=== PATIENT | female | born 1965 | race Two or more races ===

== ENCOUNTER 2020-05-17 08:31 | Day surgery (SDC) | payer MEDICAID, MEDICARE ==
[2020-05-17] VITALS (8 sets, daily range): BP systolic 91–116; BP diastolic 40–72
[~2020-05-17] VITALS: Ht 160 cm; Wt 56.7 kg
[2020-05-17] MEDS ORDERED: Midazolam 2mg/2ml Inj ONE (09:04)
[2020-05-17] MEDS ORDERED: fentaNYL 100 mcg/2 mL IV ONE (09:05)
--- NOTE | 2020-05-17 09:33 | Pre-Procedure Note/Attestation ---
Pre-Procedure Note/Attestation Complete Prior to Procedure Planned Procedure: not applicable Procedure Narrative: colonoscopy Indications for Procedure Pre-Operative Diagnosis: screening colon Attestation I attest that I discussed the nature of the procedure; its benefits; risks and complications; and alternatives (and the risks and benefits of such alternatives ), prior to the procedure, with the patient (or the patient's legal associate financial representative). I attest that, if there was a reasonable possibility of needing a blood transfusion, the patient (or the patient's legal associate financial representative) was given the [facility] standardized written summary, pursuant to the Germán Carolann Blood Safety Act ([place] Health and Safety Code # 1645, as amended). I attest that I re-evaluated the patient just prior to the surgery and that there has been no change in the patient's H&P, except as documented below: Sanjay Cummins MD May 17, 2020 09:33
--- NOTE | 2020-05-17 09:34 | Short Stay Surgery H&P ---
History of Present Illness History of Present Illness Chief Complaint screening colon HPI Gregory Boles is a 54 year old female who was admitted on for Screening Patient History Allergies: Coded Allergies: No Known Allergies (Unverified , 05/17/20) PAST MEDICAL HISTORY: (1) Breast CA Review of Systems Cardiovascular: Reports: no symptoms Respiratory: Reports: no symptoms Skeletal: Reports: no symptoms Gastrointestinal: Reports: no symptoms Genitourinary: Reports: no symptoms Endocrine: Reports: no symptoms Physical Exam Vital Signs Last Vital Signs Date Time Temp Pulse Resp B/P (MAP) Pulse Ox O2 Delivery O2 Flow Rate FiO2 05/17/20 09:22 Room Air 05/17/20 09:18 98.6 85 18 113/72 100 Skin: normal HENT: normal Heart: normal Lungs: normal Abdomen: normal Extremities: normal Plan Plan of Care colonoscopy Attestation Are the patient's medical conditions optimized for surgery? Attestation Response: yes Sanjay Cummins MD May 17, 2020 09:34
--- NOTE | 2020-05-17 09:40 | Anethesia Preoperative Eval ---
Anesthesia Pre-op PMH/ROS General Date of Evaluation: May 17, 2020 Time of Evaluation: 09:37 Anesthesiologist: Pankaj ASA Score: ASA 2 Mallampati Score Class I : Soft palate, uvula, fauces, pillars visible Class II: Soft palate, uvula, fauces visible Class III: Soft palate, base of uvula visible Class IV: Only hard plate visible Mallampati Classification: Class II Surgeon: Placido Diagnosis: Colon CA screening Surgical Procedure: Colonoscopy Anesthesia History: none Family History: no anesthesia problems Allergies: Coded Allergies: No Known Allergies (Unverified , 05/17/20) Medications: see eMAR Patient NPO?: Yes Past Medical History Cardiovascular: Denies: HTN, CAD, ND, valve dz, arrhythmia, other Pulmonary: Denies: asthma, COPD, APOORVA, other Gastrointestinal/Genitourinary: Reports: GERD; Denies: CRI, ESRD, other Neurologic/Psychiatric: Reports: depression/anxiety; Denies: dementia, CVA, TIA, other HEENT: Denies: cataract (L), cataract (R), glaucoma, LOS COYOTES (L), LOS COYOTES (R), other Hematology/Immune: Reports: other - Breast CA s/p Sx PMH Narrative: as above PSxH Narrative: L partial mastectomy Anesthesia Pre-op Phys. Exam Physician Exam Last Vital Signs Date Time Temp Pulse Resp B/P (MAP) Pulse Ox O2 Delivery O2 Flow Rate FiO2 05/17/20 09:22 Room Air 05/17/20 09:18 98.6 85 18 113/72 100 Constitutional: NAD Neurologic: CN 2-12 intact Cardiovascular: RRR, no M/R/G Respiratory: CTA Gastrointestinal: S/NT/ND Airway Exam Mallampati Score: Class II MO: full Neck: flexible ROM: full Teeth: intact Dentures: no upper, no lower Anesthesia Pre-op A/P Labs see chart Risk Assessment & Plan Assessment: ASA 2 Plan: Jose Cadena MD May 17, 2020 09:39
[2020-05-17] MEDS ORDERED: LR 1000ml 1,000 ML IVLG SCH (09:54)
[2020-05-17] MEDS ORDERED: LR 1000ml ONE (10:00)
[2020-05-17] MEDS ORDERED: fentaNYL 100 mcg/2 mL IV PRN (10:00)
--- NOTE | 2020-05-17 10:10 | Endoscopy Procedure Note ---
Endoscopy Procedure Note General Indication for Procedure: screening Procedures Performed: colonoscopy Operative Findings/Diagnosis: one polyp Specimen: yes Pt Tolerated Procedure Well: Yes Estimated Blood Loss: none Anesthesia Anesthesiologist: siobhan Anesthesia: MAC Inserted Devices Implant(s) used?: No Quality Quality of Bowel Preparation: Excellent Did scope reach the cecum?: Yes Was there any complications?: No GI Core Measures 50 yrs or older w/o bx or poly: No 10yrs. F/U recommended: Yes If not recommended, why?: Above average risk 18 years or older w/prev. colo: No Sanjay Cummins MD May 17, 2020 10:10
--- NOTE | 2020-05-17 10:15 | Immediate Post-Op Evaluation ---
Immediate Post-Op Evalulation Immediate Post-Op Evalulation Procedure: Colonoscopy, polypectomy Date of Evaluation: May 17, 2020 Time of Evaluation: 10:14 IV Fluids: 800 Blood Products: none Estimated Blood Loss: none Urinary Output: none Blood Pressure Systolic: 98 Blood Pressure Diastolic: 56 Pulse Rate: 72 Respiratory Rate: 20 O2 Sat by Pulse Oximetry: 99 Temperature (Fahrenheit): 97.6 Pain Score (1-10): 1 Nausea: No Vomiting: No Complications none Patient Status: awake, patent, none Hydration Status: adequate Jose Lira MD May 17, 2020 10:15
--- NOTE | 2020-05-17 10:39 | 48 Hour Post Anesthesia Eval ---
Post Anesthesia Evaluation Procedure: Colonoscopy, polypectomy Date of Evaluation: May 17, 2020 Time of Evaluation: 10:38 Blood Pressure Systolic: 108 0: 58 Pulse Rate: 72 Respiratory Rate: 20 Temperature (Fahrenheit): 97.6 O2 Sat by Pulse Oximetry: 98 Airway: patent Nausea: No Vomiting: No Pain Intensity: 1 Hydration Status: adequate Cardiopulmonary Status: stable Mental Status/LOC: patient returned to baseline Follow-up Care/Observations: n/a Post-Anesthesia Complications: none Follow-up care needed: ready to discharge Jose Lira MD May 17, 2020 10:39
--- NOTE | 2020-05-17 15:30 | Procedure Note ---
DATE OF PROCEDURE: 05/17/2020 SURGEON: Sanjay Cummins MD. PROCEDURE: Colonoscopy. ANESTHESIA: Per Dr. Lira. INSTRUMENT: Olympus adult flexible colonoscope. INDICATIONS: Screening colonoscopy evaluation. REASON FOR PROCEDURE: The procedure, risks, benefits, and possible consequences, including hemorrhage, aspiration, perforation and infection, and alternative treatments, were explained to the patient/legal guardian by Dr. Sanjay Cummins and the patient/legal guardian understood and accepted these risks. PROCEDURE IN DETAIL: After informed consent was obtained and the patient was adequately sedated. First rectal exam was performed which was positive for internal hemorrhoids. Then, the scope was advanced from the rectum into the cecum documented by appendix orifice, ileocecal valve, and right upper quadrant palpation. Quality of prep was good. The patient had one polyp in the sigmoid measured roughly about 4 mm, removed with cold biopsy forceps technique. The rest of the examination grossly within normal limits. Retroflexion of rectum showed evidence of internal hemorrhoids. SUMMARY OF FINDINGS: 1. One colonic polyp in the sigmoid removed with cold biopsy forceps technique. 2. Internal hemorrhoids. RECOMMENDATIONS: 1. Follow biopsy results and treat accordingly. 2. Repeat colonoscopy in 5 years. I want to thank Dr. Herr for this kind referral. Sanjay Cummins M.D. DR: MARYANA JOB#: [id number] CC: Dr. Herr
== END 2020-05-17 12:10 | disposition home or self-care (01) ==
LOC: GAS 08:31 → EDBD 10:00 → GAS 12:10
DX: Z12.11 Encounter for screening for malignant neoplasm of colon (principal); K64.8 Other hemorrhoids; K63.5 Polyp of colon; K21.9 Gastro-esophageal reflux disease without esophagitis; Z90.12 Acquired absence of left breast and nipple; Z85.3 Personal history of malignant neoplasm of breast
CPT/HCPCS: 45380; 93005; 94003; J2250; J2704; J3010; J7120; Z7512; 94150